=== PATIENT | male | born 1985 | race Caucasian/White ===

== ENCOUNTER → 2024-02-26 | Outpatient (CLI) | payer BC, MEDICAID, SELFPAY ==
--- NOTE | 2024-02-26 | XR_ITS ---
Examination: Fingers, right hand third digit 3 views Technique: AP, oblique, lateral views right hand third digit 3 views. 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
--- NOTE | 2024-02-26 | XR_ITS ---
Examination: Hand, third digit 3 views right Technique: Hand AP, oblique, lateral 3 views third digit right hand Date and time of exam: February 26, 2024 1156 hours INDICATIONS: History old fracture third digit with reinjury third digit 6 days ago FINDINGS: Soft tissue swelling about the third digit Significant osteoarthritis distal interphalangeal joint third digit No acute fracture IMPRESSION: No acute fracture
== END | disposition home or self-care (01) ==
PROVIDERS: PCP Family Medicine; Referring Provider Nurse Practitioner Family; Visit Provider Nurse Practitioner Family
DX: S69.91XA Unspecified injury of right wrist, hand and finger(s), initial encounter (principal); W19.XXXA Unspecified fall, initial encounter; Z87.81 Personal history of (healed) traumatic fracture
CPT/HCPCS: 73130; 73140